=== PATIENT | female | born 2000 | race Caucasian/White ===

== ENCOUNTER 2025-07-22 15:15 | Outpatient (REF) | payer MEDICAID, SELFPAY ==
--- OUTSIDE RECORDS SUMMARY | 2025-07-22 14:00 | XMS_ITS | Encounter Summary ---
Author Organization [employer] Address [address] [place] [address] Care Team Providers Care Investment Advisor Name Role Phone Tanya Randall NP Primary Care Provider [phone] Reason for Visit * Reason Comments New patient Encounter Details Date Type Department Care Team (Late st Contact Info) Description 07/22/2025 2:00 PM EDT Office Visit [facility] [address] [place] [address] Tanya Randall NP [address] [place] [address] Routine screening for STI (sexually transmitted infection) (Primary Dx); Class 3 severe obesity due to excess calories with serious comorbidity and body mass index (BMI) of 40.0 to 44.9 in adult (HCC); Primary hypertension; Encounter to establish care with new provider; Polysubstance abuse (HCC) Social History Tobacco Use Types Packs/Day Years Used Date Smoking Tobacco: Never Passive Smoke Exposure: Never Smokeless Tobacco: Current Alcohol Use Standard Drinks/Week Comments Yes 0 (1 standard drink = 0.6 oz pur e alcohol) Alcohol Answer Date Recorded How often do you have a drink containing alcohol ? 2 07/22/2025 How many drinks containing a lcohol do you have on a typical day when you are drinking? 4 07/22/2025 How often do you have six or more drinks on one occasion? 2 07/22/2025 Depression Answer Date Recorded Patient Health Questionnaire-9 Score 14 06/04/2025 Patient Health Questionnaire-9 Score 14 06/04/2025 Last PHQ-9: Questionnaire Data Not on file 0 06/04/2025 Housing Stability Answer Date Recorded What is your housing situation today? I have miguel jones 07/15/[address] you li ve. Do you have problems with any of the following? None of the above 07/15/2025 Food Insecurity Answer Date Recorded Within the past 12 months, y ou worried that your food would run out before you got money to buy more: Never True 07/15/2025 Within the past 12 months,th e food you bought just didn't last and you didn't have enough money to get more: Never True Transportation Answer Date Recorded In the past 12 months, has l ack of transportation kept you from medical appts, meetings, work or from getting things needed for daily living? No 07/15/2025 Utilities Answer Date Recorded In the past 12 months, has t he electric, gas, oil or water company threatened to shut off services in your home? No 07/15/2025 Depression Answer Date Recorded Patient Health Questionnaire-2 Score 4 06/04/2025 Internet Access Answer Date Recorded Internet Access Q1 Yes 07/15/2025 Internet Access Q2 Not on file 07/15/2025 Comments Unknown Sex and Gender Information Value Date Recorded Sex Assigned at Female 06/02/2025 11:11 AM EDT Legal Sex Female 12:31 PM EDT Gender Identity Female 06/02/2025 11:11 AM EDT Sexual Orientation Straight 06/02/2025 11 :11 AM EDT documented as of this encounter Last Filed Vital Signs Vital Sign Reading Time Taken Comments Blood Pressure 130/89 07/22/2025 3:04 PM EDT Pulse 85 07/22/2025 2:10 PM EDT Temperature 37.2 C (98.9 F) 07/22/2025 2:10 PM EDT Respiratory Rate 21 07/22/2025 2:10 PM EDT Oxygen Saturation 98% 07/22/2025 2:10 PM EDT Inhaled Oxygen Concentration - - Weight 113 kg (248 lb 9.6 oz) 07/22/2025 2:10 PM EDT Height 160 cm (5' 3 ) 07/22/2025 2:10 PM EDT Body Mass Index 44.04 07/22/2025 2:10 PM EDT documented in this encounter Miscellaneous Notes * Assessment & Plan Note - Tanya Randall NP - 07/22/2025 3:11 PM EDTAssociated Problem(s): Class 3 severe obesity due to excess calories with serious comorbidity and body mass index (BMI) of 40.0 to 44.9 in adult (HCC) Dietary Recommendations: Fruits, vegetables, whole grains, protein foods, and fat-free or low-fat dairy products are healthychoices. Eat different types of protein foods in your diet. This can include seafood, lean meats, poultry, beans, peas, lentils, nuts, seeds, soy products, and eggs. Limit foods and beverages higher in added sugars, saturated fat, and sodium. Exercise Recommendations: At least 150 minutes of moderate-intensity physical activity per week, or an equivalent combinationof moderate- and vigorous-intensity activity -monitoring labs ordered * Assessment & Plan Note - Tanya Randall NP - 07/22/2025 3:10 PM EDTAssociated Problem(s): Polysubstance abuse (HCC) -pre-contemplative stage -informed of [facility] resources available when ready * Assessment & Plan Note - Tanya Randall NP - 07/22/2025 3:09 PM EDTAssociated Problem(s): Primary hypertension -following shared decision making, patient to start olmesartan 5 mg for BP management -baseline EKG obtained -monitoring labs ordered -diet and lifestyle modifications reviewed -continue daily home monitoring with goal of <140/90 mmHg per JNC8 guidelines. Aware to report persistently elevated reading above goal -ED precautions discussed documented in this encounter Plan of Treatment Scheduled Orders Name Type Priority Associated Diagnoses Orde r Schedule Lipid Panel, Standard Lab Routine Class 3 severe obesity due to excess calories with serious comorbidity and body mass index (BMI) of 40.0 to 44.9 in adult Expected: 07/22/2025 (Approximate), Expires: 07/22/2026 Comprehensive Metabolic Panel Lab Routine Class 3 severe obesity due to excess calories with serious comorbidity and body mass index (BMI) of 40.0 to 44.9 in adult Primary hypertension Expected: 07/22/2025 (Approximate), Expires: 07/22/2026 Albumin, Random Urine W/Creatinine Lab Routine Primary hypertension Expected: 07/22/2025 (Approximate), Expires: 07/22/2026 Hepatitis B Core Antibody, Total Lab Routine Routine screening for STI (sexually transmitted infection) Expected: 07/22/2025 (Approximate), Expires: 07/22/2026 Hepatitis B Surface Antibody, Qualitative Lab Routine Routine screening for STI (sexually transmitted infection) Expected: 07/22/2025 (Approximate), Expires: 07/22/2026 Hepatitis B surface antigen, EIA Lab Routine Routine screening for STI (sexually transmitted infection) Expected: 07/22/2025 (Approximate), Expires: 07/22/2026 Hepatitis C Antibody with Reflex to HCV, RNA, Quantitative, Real-Time PCR Lab Routine Routine screening for STI (sexually transmitted infection) Expected: 07/22/2025 (Approximate), Expires: 07/22/2026 HIV-1/2 Antigen and Antibodies, Fourth Generation, with Reflexes Lab Routine Routine screening for STI (sexually transmitted infection) Expected: 07/22/2025 (Approximate), Expires: 07/22/2026 Syphilis Screen Lab Routine Routine screening for STI (sexually transmitted infection) Expected: 07/22/2025 (Approximate), Expires: 07/22/2026 Chlamydia/N. Gonorrhoeae, PCR, Urine Lab Routine Routine screening for STI (sexually transmitted infection) Ordered: 07/22/2025 Trichomonas RNA (Urine/Vaginal) Lab Routine Routine screening for STI (sexually transmitted infection) Ordered: 07/22/2025 ECG 12 lead ECG Routine Primary hypertension Ordered: 07/22/2025 documented as of this encounter Procedures Procedure Name Priority Date/Time Associated Diagnosis Comments POCT , URINE Routine 07/22/2025 3:24 PM EDT Primary hypertension documented in this encounter Results * POCT , urine manually resulted (07/22/2025 3:24 PM EDT) Preg Test, Ur Negative Negative, Indeterminate, None Detected, Invalid, Specimen unsatisfactory for evaluation, Weakly Positive, 2+ QC Media Lot # [id number] Lot# Expiration Date Urine 07/22/2025 3:24 PM EDT Tanya Randall NP POINT OF CARE TEST ENTER/EDIT O RDERABLES Final Result documented in this encounter Visit Diagnoses Diagnosis Routine screening for STI (sexually transmitted infection)- Primary Screening examination for venereal disease Class 3 severe obesity due to excess calories with serious comorbidity and body mass index (BMI) of 40.0 to 44.9 in adult (HCC) Primary hypertension Unspecified essential hypertension Encounter to establish care with new provider Polysubstance abuse (HCC) Other, mixed, or unspecified nondependent drug abuse, unspecified documented in this encounter Additional Health Concerns Assessment Noted Time PHQ-9 Depression Total Score: 14 025 10:21 AM EDT documented as of this encounter Care Teams Investment Advisor Relationship Specialty Start Date End Date Tanya Randall NP [address] [place] [id number] PCP - General Family Medicine 07/22/25 documented as of this encounter
--- OUTSIDE RECORDS SUMMARY | 2025-07-22 16:17 | XMS_ITS | Clinical Summary ---
Author Organization [employer] Address [address] [place] [address] Care Team Providers Care Frame Table Operator Name Role Phone Tanya Randall NP Primary Care Provider [phone] Allergies No known active allergies Medications * This document contains information received from the source organization and may not represent a complete record from that organization. traZODone (Desyrel) 50 MG tabletIndication s:Anxiety with depression Take 1 tablet (50 mg) by mouth at bedtime. 30 tablet 3 5 09/30/20 25 Active hydroCHLOROthiaz richard (HYDRODiuril) 25 MG tabletIndication s:Primary hypertension Take 1 tablet (25 mg) by mouth Once per day. 30 tablet 3 5 06/02/20 26 Active Additional Information Patient not taking.Reason: Not effective (pt reports lack of effect), Reported on 07/22/2025 PARoxetine (Paxil) 20 MG tabletIndication s:Anxiety with depression Take 1 tablet (20 mg) by mouth in the morning. 30 tablet 3 5 06/02/20 26 Active PARoxetine (Paxil) 40 MG tabletIndication s:Anxiety with depression Take 1 tablet (40 mg) by mouth in the morning. 30 tablet 3 5 06/02/20 26 Active Blood Pressure Monitoring (Blood Pressure Cuff) miscIndications: Primary hypertension 1 each Once per day. 1 each 5 Active olmesartan (Benicar) 5 MG tabletIndication s:Primary hypertension Take 1 tablet (5 mg) by mouth Once per day. 90 tablet 1 5 01/19/20 26 Active Active Problems Problem Noted Date Diagnosed Date Class 3 severe obesity due t o excess calories with serious comorbidity and body mass index (BMI) of 40.0 to 44.9 in adult 07/22/2025 Assessment & Plan (07/22/2025 3:11 PM EDT): Dietary Recommendations: Fruits, vegetables, whole grains, protein foods, and fat-free or low-fat dairy products are healthy choices. Eat different types of protein foods in your diet. This can include seafood, lean meats, poultry, beans, peas, lentils, nuts, seeds, soy products, and eggs. Limit foods and beverages higher in added sugars, saturated fat, and sodium. Exercise Recommendations: At least 150 minutes of moderate-intensity physical activity per week, or an equivalent combination of moderate- and vigorous-intensity activity -monitoring labs ordered Moderate episode of recurren t major depressive disorder (CMS/HCC) 06/04/2025 Primary hypertension 06/02/2025 Assessment & Plan (07/22/2025 3:10 PM EDT): -following shared decision making, patient to start olmesartan 5 mg for BP management -baseline EKG obtained -monitoring labs ordered -diet and lifestyle modifications reviewed -continue daily home monitoring with goal of <140/90 mmHg per JNC8 guidelines. Aware to report persistently elevated reading above goal -ED precautions discussed Assessment & Plan (06/02/2025 2:25 PM EDT): I advised: - Aerobic exercise to reduce BP. Initial goal of 30 min walk 3-5x/week. Increase as tolerated. - low-sodium diet (goal: <2g/day) and heart healthy diet such as DASH to reduce BP and prevent ASCVD. - Home BP monitoring 1-2 x day with goal of <140/90. - Seek immediate medical attention for chest pain, palpitations, SOB, syncope, or sudden changes in mental status. - Do not change or discontinue current prescriptions without first consulting health care provider CRYSTAL (generalized anxiety disorder) 06/02/2025 Assessment & Plan (06/02/2025 2:25 PM EDT): BHN referral done I will refill her medications Polysubstance abuse 06/02/2025 Assessment & Plan (07/22/2025 3:10 PM EDT): -pre-contemplative stage -informed of [facility] resources available when ready Assessment & Plan (06/02/2025 2:26 PM EDT): Counseling done Patient declines CRS referral Encounters * This document contains information received from the source organization and may not represent a complete record from that organization. Date Type Department Care Team Description 07/22/2025 2:00 PM EDT Office Visit [facility] MEDICINE [address] [place] [phone] Tanya Randall NP Routine screening for STI (sexually transmitted infection) (Primary Dx); Class 3 severe obesity due to excess calories with serious comorbidity and body mass index (BMI) of 40.0 to 44.9 in adult (HCC); Primary hypertension; Encounter to establish care with new provider; Polysubstance abuse (HCC) 07/22/2025 Travel 07/15/2025 Patient Outreach [facility] [address] [place] [address] Tanya Randall NP Pre-visit Planning (SDOH negative, Tobacco screening negative, ) 07/15/2025 Travel 06/02/2025 1:20 PM EDT Office Visit [facility] [address] [place] [phone] Mary Alberts MD Polysubstance abuse (CMS/HCC) (Primary Dx); Primary hypertension; Anxiety with depression 06/02/2025 Travel 05/27/2025 Telephone [facility] [address] [place] [phone] Emile Sanchez MD CHW - New Patient Assistance from Last 3 Months Family History Medical History Relation Name Comments Anxiety disorder Father Depression Father Migraines Mother Relation Name Status Comments Father Mother Social History Tobacco Use Types Packs/Day Years Used Date Smoking Tobacco: Never Passive Smoke Exposure: Never Smokeless Tobacco: Current Tobacco Cessation:Ready to Q uit: Not Asked; Counseling Given: Not Answered Alcohol Use Standard Drinks/Week Comments Yes 0 [...] Orientation Straight 06/02/2025 11 :11 AM EDT Last Filed Vital Signs Vital Sign Reading [...] Mass Index 44.04 07/22/2025 2:10 PM EDT Plan of Treatment Health Maintenance Due Date Last Done Comments HIV Screening 1998 Lipid Panel 1998 Family Planning (PISQ) 2013 Hepatitis C Screening 2016 Hepatitis A Vaccines (1 of 2 - Risk 2-dose series) 2017 Pneumococcal Vaccine: Pediatrics (0 to 5 Years) and At-Risk Patients (6 to 49) Years (2 of 2 - PCV) 02/19/2018 02/19/2017, 06/23/2000 Pap Smear 2019 COVID-19 Vaccine ( season) 2025 03/09/2021, 02/16/2021 Influenza Vaccine (#1) 2025 2, 10/01/2012, 08/15/2011, Additional history exists Depression Monitoring 12/05/2025 06/04/2025, 025 SDOH Screening 07/15/2026 07/15/2025 Alcohol/Substance Use Screening 07/22/2026 07/22/2025 Disability Screening 07/22/2026 07/22/2025 Tobacco Screening 07/22/2026 07/22/2025 DTaP/Tdap/Td Vaccines (8 - Td or Tdap) 09/10/2034 09/10/2024, 05/03/2011, 12/02/2003, Additional history exists Zoster Vaccines (1 of 2) 2048 RSV Patients and Patients Aged 60 years or older (1 - 1-dose 75+ series) 2073 Rotavirus Vaccines Aged Out 03/22/1999, 01/20/1999 No longer eligible based on patient's age to complete this topic Hepatitis B Vaccines Completed 06/17/1999, 1998, 1998 Meningococcal Vaccine Completed 03/22/2016, 011 HPV Vaccines Completed 12/28/2016, 12/2015, 05/25/2016 HIB Vaccines Aged Out No longer eligi ble based on patient's age to complete this topic IPV Vaccines Aged Out No longer eligi ble based on patient's age to complete this topic Meningococcal B Vaccine Aged Out No l onger eligible based on patient's age to complete this topic RSV under 20 months Aged Out No longe r eligible based on patient's age to complete this topic Procedures Procedure Name Priority Date/Time Associated Diagnosis Comments POCT , URINE Routine 07/22/2025 3:24 PM EDT Primary hypertension from Last 3 Months Results * POCT , urine manually resulted (07/22/2025 3:24 PM EDT) Preg Test, Ur Negative Negative, Indeterminate, None Detected, Invalid, Specimen unsatisfactory for evaluation, Weakly Positive, 2+ QC Media Lot # [id number] Lot# Expiration Date Urine 07/22/2025 3:24 PM EDT Tanya Randall NP POINT OF CARE TEST ENTER/EDIT O RDERABLES Final Result from Last 3 Months Insurance [facility] C3 Care Teams Frame Table Operator Relationship Specialty Start Date End Date Tanya Randall NP [address] [place] [address] PCP - General Family Medicine 07/22/25
--- OUTSIDE RECORDS SUMMARY | 2025-07-22 16:17 | XMS_ITS | Encounter Summary ---
Author Organization [facility] Address [address] [place] [address] Care Team Providers Care Lube Worker Name Role Phone Connie Corcoran MD Primary Care Provider [phone] Encounter Details Date Type Department Care Team (Late st Contact Info) Description 07/24/2018 Scanned Document [facility] [place] [address] [place] [address] Mateo Mace MD [address] [place] [address] Social History Tobacco Use Types Packs/Day Years Used Date Smoking Tobacco: Never Smokeless Tobacco: Never Alcohol Use Standard Drinks/Week Comments No 0 (1 standard drink = 0.6 oz pur e alcohol) AUDIT-C Answer Date Recorded Frequency of Alcohol Consumption Never 07/01/2018 Average Number of Drinks Not on file 018 Frequency of Binge Drinking Not on file 06/22 Comments No Sex and Gender Information Value Date Recorded Sex Assigned at Not on file Legal Sex Female 4:23 PM EDT Gender Identity Not on file Sexual Orientation Not on file documented as of this encounter Plan of Treatment Not on file documented as of this encounter Visit Diagnoses Not on filedocumented in this encounter Care Teams Lube Worker Relationship Specialty Start Date End Date Connie Corcoran MD [address] [place] [address] [place] [address] PCP - General Internal Medicine 07/04/18 documented as of this encounter
--- OUTSIDE RECORDS SUMMARY | 2025-07-22 16:17 | XMS_ITS | Encounter Summary ---
Author Organization [facility] Address [address] [place] [address] Care Team Providers Care Rn Plastic Surgery Name Role Phone Connie Corcoran MD Primary Care Provider [phone] Encounter Details Date Type Department Care Team (Late st Contact Info) Description 10/08/2018 Scanned Document [facility] [place] [address] [place] [address] Mateo Mace MD [address] [place] [address] Social History Tobacco Use Types Packs/Day Years [...] on filedocumented in this encounter Care Teams Rn Plastic Surgery Relationship Specialty Start Date End Date Connie Corcoran MD [address] [place] [address] [place] [address] PCP - General Internal Medicine 07/04/18 documented as of this encounter
--- OUTSIDE RECORDS SUMMARY | 2025-07-22 16:17 | XMS_ITS | Clinical Summary ---
Author Organization [facility] [address] [place] [address] [place] [phone] Phone Care Team Providers Care Corporate Manager Name Role Phone Jeffery Reyna MD Primary Care Pr ovider Allergies Active Allergy Reactions Criticality Noted Date Comments Dog Dander 03/25/2014 House Dust Mite 03/25/2014 Mold 06/14/2013 Ragweed 03/25/2014 Medications naltrexone (DEPADE) 50 mg tablet Take 1 tablet (50 mg total) by mouth 1 (one) time each day. 4 Active albuterol HFA (PROAIR HFA ; PROVENTIL HFA ; VENTOLIN HFA) 90 mcg/actuation inhaler Inhale 2 Puffs into the lungs every 4 hours as needed for Cough, Wheezing or Shortness of Breath. 4 Active norethindrone (POORNIMA,RUTH,HEA THER,MICRONOR) 0.35 mg tablet Take 1 tablet (0.35 mg total) by mouth 1 (one) time each day. 4 Active cetirizine (ZyrTEC) 10 mg tablet Take 1 Tablet by mouth. 9 Active cloNIDine (CATAPRES) 0.1 mg tabletIndications :Anxiety and depression Take 1 tablet (0.1 mg total) by mouth at bedtime as needed for high blood pressure. at bedtime. 90 each 1 4 Active PARoxetine (PAXIL) 40 mg tabletIndications :Anxiety and depression Take 1 tablet (40 mg total) by mouth 1 (one) time each day in the morning. 90 each 1 4 Active hydroCHLOROthiazi de (HYDRODIURIL) 25 mg tabletIndications :Primary hypertension Take 1 tablet (25 mg total) by mouth 1 (one) time each day. 90 each 1 4 Active fluticasone furoate (Arnuity Ellipta) 100 mcg/actuation blister with device inhalerIndication s:Mild intermittent asthma without complication Inhale 1 puff by mouth 1 (one) time each day. 1 each 1 4 Active traZODone (DESYREL) 50 mg tabletIndications :Primary insomnia Take 1 tablet (50 mg total) by mouth at bedtime. 90 each 1 4 Active topiramate (Qudexy XR) 150 mg capsule,sprinkle, ER 24hrIndications:C hronic migraine without aura without status migrainosus, not intractable TAKE 1 CAPSULE BY MOUTH 1 (ONE) TIME EACH DAY. 90 each 1 5 Active PARoxetine (PAXIL) 20 mg tabletIndications :Anxiety and depression TAKE 1 TABLET BY MOUTH 1 TIME EACH DAY IN THE MORNING. TAKE WITH 40MG FOR TOTAL OF 60MG DAILY 90 tablet 5 Active Active Problems Problem Noted Date Diagnosed Date Morbid obesity with BMI of 4 5.0-49.9, adult ([facility] V24, [facility] V28) 10/01/2024 Assessment & Plan (10/01/2024 10:22 AM EST): Lifestyle counseling provided Declines weight management evaluation for now Primary insomnia 10/01/2024 Assessment & Plan (10/01/2024 10:22 AM EST): Stable. Continue trazodone Orders: traZODone (DESYREL) 50 mg tablet; Take 1 tablet (50 mg total) by mouth at bedtime. Vaping nicotine dependence, tobacco product 09/21 Assessment & Plan (10/01/2024 10:22 AM EST): See above Anxiety and depression 08/27/2024 Assessment & Plan (10/01/2024 10:22 AM EST): Stable. Continue current medications Orders: cloNIDine (CATAPRES) 0.1 mg tablet; Take 1 tablet (0.1 mg total) by mouth at bedtime as needed for high blood pressure. at bedtime. PARoxetine (PAXIL) 20 mg tablet; Take 1 tablet (20 mg total) by mouth 1 (one) time each day in the morning. Take with 40mg for total of 60mg daily PARoxetine (PAXIL) 40 mg tablet; Take 1 tablet (40 mg total) by mouth 1 (one) time each day in the morning. Mixed hyperlipidemia 07/07/2024 Assessment & Plan (10/01/2024 10:22 AM EST): Lifestyle counseling provided Orders: Lipid panel with reflex to direct LDL; Future Comprehensive metabolic panel; Future Primary hypertension 07/07/2024 Assessment & Plan (10/01/2024 10:22 AM EST): Well controlled Orders: hydroCHLOROthiazide (HYDRODIURIL) 25 mg tablet; Take 1 tablet (25 mg total) by mouth 1 (one) time each day. Hepatic steatosis 11/12/2023 Overview (08/27/2024): US abdomen 11/12/23 Elevated LFTs 09/24/2023 Benzodiazepine abuse ([facility] V24, [facility] V28) 12/10/2019 Overview (08/27/2024): See telephone encounter 12/10/2019 Alcohol use disorder 07/12/2018 Assessment & Plan (10/01/2024 10:22 AM EST): See HPI Resume naltrexone 50mg daily Cocaine use 07/12/2018 Assessment & Plan (10/01/2024 10:22 AM EST): See HPI Asthma, mild intermittent 08/15/2011 Overview (08/27/2024): Also exercise induced Assessment & Plan (10/01/2024 10:22 AM EST): Vaping nicotine daily. States she is not ready to quit at this time. She is aware that this could worsen her asthma. Continue albuterol prn. Start arnuity daily. This is resent Orders: fluticasone furoate (Arnuity Ellipta) 100 mcg/actuation blister with device inhaler; Inhale 1 puff by mouth 1 (one) time each day. Migraine 08/15/2011 Assessment & Plan (10/01/2024 10:22 AM EST): Stable. Continue topiramate Orders: topiramate 150 mg capsule,sprinkle,ER 24hr; Take 150 mg by mouth 1 (one) time each day. Resolved Problems Problem Noted Date Diagnosed Date Resolved Date Major depression 08/27/2024 10/01/2024 Overview (08/27/2024): H/o attempted suicide; OD tylenol 500 11/09; [facility] admission 12/11 suicidal ideation, heavy alcohol and benzo abuse Immunizations Immunization Administration Dates Next Due DTaP (Infanrix) 6wks to less than 7yo ,03/30/2000,06/17/1999,03/24,02/04/1999 HPV 9-valent (Gardisil) 9yo to less than 46yo 12/28/2016,08/24/2016,05/25/2016 Hepatitis B Pediatric (Enger ix B; Recombivax HB) to less than 20 yo 06/17/1999,1998,1998 Influenza trivalent, 0.5mL, preservative free (Fluarix; FluLaval; Fluzone) ages 6mo and older (Afluria) 3 years and older 10/01/2012,08/15/2011,09/21/2010,07/13 Influenza trivalent, with pr eservative (Fluzone; Afluria) 6mo and older 10/01/2012,08/15/2011,09/21/2010,07/13 MMR, measles mumps and rubel la Live (Priorix; M-M-R II) 12mo and older 12/02/2003,03/30/2000 Meningococcal MCV4P 03/22/2016,05/03/2011 [employer] SARS-CoV-2 COVID-19, mRNA, LNP-S, preservative free 03/09/2021,02/16/2021 Pneumococcal Conjugate Vacci ne, 7 Valent 06/23/2000 Pneumococcal polysaccharide 23 valent (Pneumovax 23) 2yo and older 02/19/2017 Rotavirus Pentavalent 3 dose s Oral (Rotateq) 6wks to less than 8mo 03/22/1999,01/20/1999 Tdap Tetanus diptheria acell ular pertussis (Boostrix; Adacel) 7yo and older 09/10/2024,05/03/2011 Varicella live (Varivax) 12m o and older 03/31/2008,12/09/1999 Surgical History Surgery Date Site/Laterality Comments OTHER SURGICAL HISTORY PROCEDURE: DENIES PREVIOUS SURGERY UPPER GASTROINTESTINAL ENDOSCOPY 01/01/2019 PROCEDURE: DE UPPER GI ENDOSCOPY PERFORMED; COMMENT: biopsy pending Medical History Medical History Date Comments Environmental allergies DX:Envir onmental allergies Major depression DX:Major depres kajal; COMMENT: H/o attempted suicide; OD tylenol 500 Anxiety DX:Anxiety Migraine without aura DX:Migrain e without aura Alcohol consumption binge drinking 07/12/2018 DX:Alcohol consumption binge drinking Asthma, mild intermittent 08/15/2011 DX:Ast hma, mild intermittent; COMMENT: Also exercise induced Cocaine use 07/12/2018 DX:Cocaine use Migraine 08/15/2011 DX:Migraine Multiple allergies 05/15/2014 DX:Multiple a llergies Chlamydia contact, untreated 04/02/2020 DX: Chlamydia contact, untreated Family History Medical History Relation Name Comments Other cancer Maternal Grandmother skin Dementia Paternal Grandfather Hypertension Paternal Grandmother Breast cancer Neg Hx Colon cancer Neg Hx Ovarian cancer Neg Hx Uterine cancer Neg Hx Relation Name Status Comments Brother 1 Alive 1/2 on Mom's si de; ; Keegan Brother 2 Alive 1/2 on Mom's si de; 08/01; Scot Padron Father Alive Maternal Grandfather cancer Maternal Grandmother Alive healthy Mother Alive Paternal Grandfather ? Paternal Grandmother Alive HTN Sister Alive 08/14/13 Social History Tobacco Use Types Packs/Day Years Used Date Smoking Tobacco: Every Day Cigarettes Smokeless Tobacco: Never Tobacco Cessation:Ready to Q uit: Not Asked; Counseling Given: Not Answered Alcohol Use Standard Drinks/Week Comments Not Currently 0 (1 standard drink = 0.6 oz pur e alcohol) Comments No Sex and Gender Information Value Date Recorded Sex Assigned at Not on file Legal Sex Female 12:19 PM EST Gender Identity Not on file Sexual Orientation Not on file Obstetrics History Last Filed Vital Signs Vital Sign Reading Time Taken Comments Blood Pressure 122/78 10/01/2024 9:34 AM EST Pulse 88 10/01/2024 9:34 AM EST Temperature 36.4 C (97.6 F) 10/01/2024 9:34 AM EST Respiratory Rate 14 10/01/2024 9:34 AM EST Oxygen Saturation 99% 10/01/2024 9:34 AM EST Inhaled Oxygen Concentration - - Weight 116 kg (256 lb) 10/01/2024 9:34 AM EST Height 160 cm (5' 3 ) 10/01/2024 9:34 AM EST Body Mass Index 45.35 10/01/2024 9:34 AM EST Plan of Treatment Health Maintenance Due Date Last Done Comments Hepatitis A Vaccines (1 of 2 - Risk 2-dose series) 2017 Social Influencers of Health Screening 09/30/2022 Depression Screening 10/22/2024 Hypertension/CHF/CAD Annual BMP Blood Test 07/28/2025 07/28/2024, 07/28/2024, 07/28/2024 Cervical Cancer Screening: Pap Smear 02/09/2026 02/09/2023, 02/09/2023, 02/09/2023, Additional history exists Cholesterol Screening (Lipid Panel) 07/28/2029 07/28/2024, 07/28/2024 DTaP,Tdap,and Td Vaccines (8 - Td or Tdap) 09/10/2034 09/10/2024, 05/03/2011, 12/02/2003, Additional history exists Pneumococcal Vaccine: Pediatrics (0 to 5 Years) and At-Risk Patients (6 to 49 Years) (2 of 2 - PCV20 or PCV21) 2048 02/19/2017, 06/23/2000 RSV Immunization Adult Patients (1 - 1-dose 75+ series) 2073 Hepatitis B Vaccines Completed 06/17/1999, 1998, 1998 MMR Vaccines Completed 12/02/2003, 03/30/2000 Varicella Vaccines Completed 03/31/2008, 12/09/1999 Influenza Vaccine Discontinued 10/01/2012, , 08/15/2011, Additional history exists Meningococcal ACWY Vaccine Completed 03/22/2016, HPV Vaccines Completed 12/28/2016, 11/0 12/2015, 05/25/2016 COVID-19 Vaccine Discontinued 03/09/2021, 02/16/2021 HIV Screening Completed 05/17/2021 Hepatitis C Screening Completed 05/17/2021 Gonorrhea/Chlamydia Screening Discontinued 02/09/2023 HIB Vaccines Aged Out No longer eligi ble based on patient's age to complete this topic IPV Vaccines Aged Out No longer eligi ble based on patient's age to complete this topic Meningococcal B Vaccine Aged Out No l onger eligible based on patient's age to complete this topic RSV Immunization Patients Under 20 months Aged Out No longer eligible based on patient's age to complete this topic Procedures Procedure Name Priority Date/Time Associated Diagnosis Comments ANNUAL BMP BLOOD TEST Routine 07/28/2024 LIPID PANEL Routine 07/28/2024 PAP SMEAR Routine 02/09/2023 GONORRHEA/CHLAMYDIA SCRREENING Routine 02/09/2023 HEPATITIS C SCREENING Routine 05/17/2021 HIV SCREENING Routine 05/17/2021 from Last 3 Months or Most Recently Relevant to Health Maintenance Results * Annual BMP Blood Test (07/28/2024) Annual BMP Blood Test abstracted us Historical Provider HEALTH MAINTENANCE Final Result * (ABNORMAL) Lipid panel (07/28/2024) LDL/HDL Ratio 7(A) 0 - 4 Triglycerides 287(A) 0 - 150 mg/dL Cholesterol 201(A) 0 - 200 mg/dL HDL 29(A) >=40 mg/dL LDL Cholesterol 115(A) 0 - 100 mg/dL Blood Venous blood specimen / Unknown Historical Provider LAB BLOOD ORDERABLES Cristiana l Result * Gonorrhea/Chlamydia Screening (02/09/2023) Gonorrhea/Chla mydia Screening abstracted Historical Provider HEALTH MAINTENANCE Final Result * Pap smear (02/09/2023) 02/09/2023 Narrative HISTORICAL TESTING LAB RESULTING AGENCY - 02/15/2023 6:20 AM EDT [id number] THINPREP PAP, IMAGED: NEGATIVE FOR SQUAMOUS INTRAEPITHELIAL LESION AND MALIGNANCY . CHERYL ROSADO(ASCP) (CASE ELECTRONICALLY SIGNED 02 14 2023) ADEQUACY: SATISFACTORY ENDOCERVICAL/TRANSFORMATION ZONE COMPONENT PRESENT. SOURCE: THINPREP PAP HPV IF ASCUS, CERVICAL, IMAGED CLINICAL INFORMATION: HPV IF DIAGNOSIS OF ASCUS. PAP HX NEGATIVE, [[id number]] Edna Mijares CNM LAB CYTOLOGY ORDERABLES Final Result HISTORICAL TESTING LAB RESULTING AGENCY * HIV Screening (05/17/2021) HIV Screening abstracted Historical Provider HEALTH MAINTENANCE Final Result * Hepatitis C Screening (05/17/2021) Pathologist [facility] Hepatitis C Screening abstracted Historical Provider HEALTH MAINTENANCE Final Result from Last 3 Months or Most Recently Relevant to Health Maintenance Insurance [place] Care Teams Corporate Manager Relationship Specialty Start Date End Date Jeffery Reyna MD [address] [place] [phone] PCP - General 07/26/23
--- OUTSIDE RECORDS SUMMARY | 2025-07-22 16:17 | XMS_ITS | Encounter Summary ---
Author Organization [facility] Address [address] [place] [address] Care Team Providers Care Gauger Chief Name Role Phone Connie Corcoran MD Primary Care Provider [phone] Encounter Details Date Type Department Care Team (Late st Contact Info) Description 07/24/2018 Scanned Document [facility] [address] [place] [address] Mateo Mace MD [address] [place] [address] Social History Tobacco Use Types Packs/Day Years [...] on filedocumented in this encounter Care Teams Gauger Chief Relationship Specialty Start Date End Date Connie Corcoran MD [address] [place] [address] [place] [id number] PCP - General Internal Medicine 07/04/18 documented as of this encounter
--- OUTSIDE RECORDS SUMMARY | 2025-07-22 16:17 | XMS_ITS | Clinical Summary ---
Author Organization [facility] Address [address] [place] [address] Phone Care Team Providers Care Fence Post Driver Name Role Phone Unavailable Primary Care Provider Unavailabl e Social History Tobacco Use Types Packs/Day Years Used Date Smoking Tobacco: Never Assessed Comments Unknown Sex and Gender Information Value Date Recorded Sex Assigned at Not on file Legal Sex Female 6:21 PM EDT Gender Identity Not on file Sexual Orientation Not on file Plan of Treatment Health Maintenance Due Date Last Done Comments MMR Vaccines (1 of 1 - Stand naida series) 1999 Varicella Vaccines (1 of 2 - 13+ 2-dose series) 2011 HPV Vaccines (1 - 3-dose series) 2013 DTaP,Tdap,and Td Vaccines (1 - Tdap) 2016 Hepatitis B Vaccines (1 of 3 - 19+ 3-dose series) 2017 Influenza Vaccines (#1) 2025 COVID-19 Vaccine (1 - 2024-2 6 season) 2025 HIB Vaccines Aged Out No longer eligi ble based on patient's age to complete this topic Hepatitis A Vaccines Aged Out No long er eligible based on patient's age to complete this topic IPV Vaccines Aged Out No longer eligi ble based on patient's age to complete this topic Men B Vaccine Aged Out No longer elig ible based on patient's age to complete this topic Meningococcal Vaccine Aged Out No kiara matthew eligible based on patient's age to complete this topic Pneumococcal Vaccine Aged Out No long er eligible based on patient's age to complete this topic
--- OUTSIDE RECORDS SUMMARY | 2025-07-22 16:17 | XMS_ITS | Encounter Summary ---
Author Organization [facility] Address [address] [place] [id number] Care Team Providers Care Home Health Clinician Name Role Phone Connie Corcoran MD Primary Care Provider [phone]- [phone] Encounter Details Date Type Department Care Team (Late st Contact Info) Description 05/30/2019 Scanned Document [facility] [address] [phone] Mateo Mace MD [address] [place] [id number] Social History Tobacco Use Types Packs/Day Years [...] on filedocumented in this encounter Care Teams Home Health Clinician Relationship Specialty Start Date End Date Connie Corcoran MD [address] [place] [address] [id number] PCP - General Internal Medicine 07/04/18 documented as of this encounter
--- OUTSIDE RECORDS SUMMARY | 2025-07-22 16:17 | XMS_ITS ---
Author Name [facility] Organization Unknown History of Medication Use Medication Directions Dispensed Refills Start Date End Date Stat us topiramate (TOPAMAX) 25 MG tablet Take 1 tablet (25 mg total) by mouth daily. 1 tab po qd x 1 week then increase each week by 1 tab up to 2 tabs po bid 10/09/2018 active amitriptyline (ELAVIL) 10 MG tablet Take 1 tablet (10 mg total) by mouth nightly. 09/05/2018 active ondansetron (ZOFRAN-ODT) 8 MG disintegrating tablet Take 1 tablet (8 mg total) by mouth 2 times daily (every 12 hours) as needed for nausea or vomiting. Place tablet on tongue and to dissolve. 07/04/2018 active levonorgestrel (MIRENA) 20 mcg/24hr IUD 1 each by Intrauterine route once. active Problems Problem Status Onset Date Problem Type Date of Resoluti on Source Work related injury active EncounterDiagnosisAc t [facility] Anxiety active 2018-07-04 ProblemAct [facility] Chronic migraine without aura, intractable, without status migrainosus active 2018-07-04 ProblemAct [facility] Chronic migraine without aura, with intractable migraine, so stated, with status migrainosus active 2018-07-04 ProblemAct [facility] Intractable menstrual migraine with status migrainosus active 2018-07-04 ProblemAct [facility] Laceration of left index finger without foreign body without damage to nail, initial encounter active EncounterDiagnosisAct H [facility] Laceration of left middle finger without foreign body without damage to nail, initial encounter active EncounterDiagnosisAct [facility] Sleep disorder active 2018-07-[address] Caffeine abuse, continuous active 2018-07-04 ProblemAct [facility] Depression active 2018-07-04 ProblemAct [facility] Medication overuse headache active 2018-07-04 ProblemAct [facility] Encounters Encounter Type Encounter Reason Primary Diagnosis Location Date Ambulatory Civilian activit y done for income or pay Juan TrackR 01/03/2023 Care Team Organization Name Specialty Phone Email Start Date End Da te [facility] Valentine Corcoran Primary Care 01/03/202312/20 [facility] MEAGANVALENTINE Primary Care 01/03/2023
--- OUTSIDE RECORDS SUMMARY | 2025-07-22 16:17 | XMS_ITS | Encounter Summary ---
Author Organization [facility] Address [address] [place] [address] Care Team Providers Care Field Technical Specialist Name Role Phone Connie Corcoran MD Primary Care Provider [phone]- [phone] Encounter Details Date Type Department Care Team (Late st Contact Info) Description 10/18/2018 Scanned Document [facility] [address] [place] [address] Mateo Mace MD [address] [place] [address] Social History Tobacco Use Types Packs/Day Years [...] on filedocumented in this encounter Care Teams Field Technical Specialist Relationship Specialty Start Date End Date Connie Corcoran MD [address] [place] [address] [place] [address] PCP - General Internal Medicine 07/04/18 documented as of this encounter
--- OUTSIDE RECORDS SUMMARY | 2025-07-22 16:17 | XMS_ITS | Encounter Summary ---
Author Organization [employer] Address [address] [place] [address] Care Team Providers Care Social Media Director Name Role Phone Amandadarío Tanya KHAN Primary Care Provider [phone] Encounter Details Date Type Department Care Team (Latest Contact Info) Description 07/22/2025 Travel Social History Tobacco Use Types Packs/Day Years [...] is your housing situation today? I have migueldeisi jones 07/15/[address] you [...] AM EDT documented as of this encounter Plan of Treatment Not on file documented as of this encounter Visit Diagnoses Not on filedocumented in this encounter Additional Health Concerns Assessment Noted Time PHQ-9 Depression Total Score: 14 025 10:21 AM EDT documented as of this encounter Care Teams Social Media Director Relationship Specialty Start Date End Date Tanya Randall NP [address] [place] [id number] PCP - General Family Medicine 07/22/25 documented as of this encounter
--- OUTSIDE RECORDS SUMMARY | 2025-07-22 16:17 | XMS_ITS | Clinical Summary ---
Author Organization [facility] Address [address] [place] [address] Care Team Providers Care Financial Agent Name Role Phone Connie Corcoran MD Primary Care Provider [phone] Allergies Active Allergy Reactions Criticality Noted Date Comments Dust Mite Extract Unknown/Patient and Family Unable to Define Medium 07/01/2018 Molds & Smuts Unknown/Patient and Family Unable to Define Medium 07/01/2018 Other Unknown/Patient and Family Unable to Define Medium 07/01/2018 Dog dander and grass Medications PARoxetine (PAXIL-CR) 37.5 MG 24 hr tablet Take 37.5 mg by mouth every morning. Active norgestimate-ethin yl estradiol (SPRINTEC 28) 0.25-35 MG-MCG per tablet Take 1 tablet by mouth daily. Active metoCLOPRAMIDE (REGLAN) 10 MG tablet Take 10 mg by mouth 4 (four) times a day. Active naproxen (NAPROSYN) 500 MG tablet Take 500 mg by mouth 2 (two) times a day with meals. Take with meals or food to reduce stomach upset. Active ondansetron (ZOFRAN-ODT) 8 MG disintegrating tabletIndications: Chronic migraine without aura, intractable, without status migrainosus,Chroni c migraine without aura, with intractable migraine, so stated, with status migrainosus,Medica tion overuse headache,Intractab le menstrual migraine with status migrainosus Take 1 tablet (8 mg total) by mouth 2 times daily (every 12 hours) as needed for nausea or vomiting. Place tablet on tongue and to dissolve. 60 tablet 3 07/04/20 18 Active SUMAtriptan (IMITREX) 100 MG tabletIndications: Chronic migraine without aura, intractable, without status migrainosus,Chroni c migraine without aura, with intractable migraine, so stated, with status migrainosus,Medica tion overuse headache,Intractab le menstrual migraine with status migrainosus Take 1 tablet (100 mg total) by mouth once as needed for migraine. 1 tab po at onset of migraine, repeat in 2 hours PRN 9 tablet 3 07/04/20 18 Active amitriptyline (ELAVIL) 10 MG tabletIndications: Chronic migraine without aura, intractable, without status migrainosus,Chroni c migraine without aura, with intractable migraine, so stated, with status migrainosus,Medica tion overuse headache,Intractab le menstrual migraine with status migrainosus Take 1 tablet (10 mg total) by mouth nightly. 90 tablet 09/05/20 18 Active levonorgestrel (MIRENA) 20 mcg/24hr IUD 1 each by Intrauterine route once. Active topiramate (TOPAMAX) 25 MG tabletIndications: Chronic migraine without aura, intractable, without status migrainosus Take 1 tablet (25 mg total) by mouth daily. 1 tab po qd x 1 week then increase each week by 1 tab up to 2 tabs po bid 120 tablet 3 10/09/20 18 Active lidocaine-prilocai ne (EMLA) creamIndications:C hronic migraine without aura, intractable, without status migrainosus Apply topically 3 (three) times a day as needed for mild pain. Apply to affected area TID PRN 30 g 3 10/09/20 18 Active topiramate (TOPAMAX) 100 MG tabletIndications: Chronic migraine without aura, intractable, without status migrainosus TAKE 1 TABLET BY MOUTH EVERY DAY 30 tablet 3 03/31/20 19 Active atenolol (TENORMIN) 50 MG tablet Take 50 mg by mouth daily. 12/24/19 23 Active cloNIDine (CATAPRES) 0.1 MG tablet Take 0.1 mg by mouth 2 (two) times a day. 12/25/19 23 Active traZODone (DESYREL) 50 MG tablet TAKE 1 TABLET BY MOUTH EVERYDAY AT BEDTIME 12/22/19 23 Active Active Problems Problem Noted Date Diagnosed Date Chronic migraine without aur a, intractable, without status migrainosus 07/04/2018 Chronic migraine without aur a, with intractable migraine, so stated, with status migrainosus 07/04/2018 Medication overuse headache 07/04/2018 Intractable menstrual migraine with status migra inosus 07/04/2018 Sleep disorder 07/04/2018 Caffeine abuse, continuous 07/04/2018 Depression 07/04/2018 Anxiety 07/04/2018 Family History Medical History Relation Name Comments Migraines Maternal Aunt Migraines Maternal Grandmother Migraines Mother Relation Name Status Comments Maternal Aunt Maternal Grandmother Mother Social History Tobacco Use Types Packs/Day [...] on file Sexual Orientation Not on file Last Filed Vital Signs Vital Sign Reading Time Taken Comments Blood Pressure 150/80 01/03/2023 2:01 PM EDT Pulse 81 01/03/2023 2:01 PM EDT Temperature - - Respiratory Rate 16 01/03/2023 2:01 PM EDT Oxygen Saturation 98% 01/03/2023 2:01 PM EDT Inhaled Oxygen Concentration - - Weight 104 kg (230 lb) 01/03/2023 2:01 PM EDT Height 160 cm (5' 3 ) 01/03/2023 2:01 PM EDT Body Mass Index 40.74 01/03/2023 2:01 PM EDT Plan of Treatment Health Maintenance Due Date Last Done Comments Hepatitis C Virus Screening 1998 HIV Screening 2011 HPV Vaccines (1 - 3-dose series) 2013 DTaP/Tdap/Td Vaccines (1 - Tdap) 2017 Hepatitis B Vaccines (1 of 3 - 19+ 3-dose series) 2017 Pap Smear (Ages 21-65) 2019 Influenza Vaccine 05/22/2025 COVID-19 Vaccine (1 - 2023-2 5 season) 2025 Pneumococcal Vaccine: Pediat zoe (0-5 Years) and At-Risk Patients (6 to 49 Years) Aged Out No longer eligible b ased on patient's age to complete this topic Insurance [facility] [facility] [employer] Care Teams Financial Agent Relationship Specialty Start Date End Date Connie Corcoran MD [address] [place] [address] [place] [id number] PCP - General Internal Medicine 07/04/18
[2025-07-22 18:18] LABS: Alanine Aminotransferase 28 U/L (0-31); Albumin Level 4.9 g/dL (3.5-5.0); Alkaline Phosphatase 83 U/L (39-117); Anion Gap 12 (12-20); Aspartate Amino Transferase 31 U/L (5-31); Blood Urea Nitrogen 10 mg/dL (9-16); Calcium 9.5 mg/dL (8.4-10.2); Carbon Dioxide 25 mmol/L (22-29); Chloride 106 mmol/L (96-108); Cholesterol 215 mg/dL (<200); Estimated Glomerular Filt Rate > 60; HDL Cholesterol 35 mg/dL (>40); Potassium 4.2 mmol/L (3.3-5.1); Sodium 139 mmol/L (135-145); Total Protein 8.0 g/dL (6.5-8.0); Triglycerides 202 mg/dL (<150)
[2025-07-23 04:27] LABS: Syphilis Screen Nonreactive (Nonreactive)
[2025-07-23 05:13] LABS: HBS Num1 0.39 mIU/mL (0-7.99); HBc Num1 0.07 S/CO (0.00-0.79); HBsAGNum1 0.35 S/CO (0.00-0.99); HIV Num 1 0.04 S/CO (0.00-0.99); Hepatitis B Surface Antigen Negative (Negative); ~HepC Num1 0.09 S/CO (0.00-0.79); ~Hepatitis B Surface Antibody NONREACTIVE (Nonreactive); ~Hepatitis C Antibody Nonreactive (Nonreactive)
== END 2025-07-22 15:16 | disposition home or self-care (01) ==
LOC: HO.HHCL 15:15
PROVIDERS: PCP Nurse Practitioner; Visit Provider Nurse Practitioner
DX: Z11.3 Encounter for screening for infections with a predominantly sexual mode of transmission (principal); Z11.59 Encounter for screening for other viral diseases; Z01.84 Encounter for antibody response examination; Z11.8 Encounter for screening for other infectious and parasitic diseases; E66.813 Obesity, class 3; Z68.41 Body mass index [BMI] 40.0-44.9, adult; I10 Essential (primary) hypertension
CPT/HCPCS: 36415; 80053; 80061; 86704; 86706; 86780; 86803; 87340; 87389